=== PATIENT | female | born 1980 | race African-American/Black ===

== ENCOUNTER 2016-12-01 06:02 | Inpatient (IN) | payer OTHER ==
[~2016-12-01] VITALS: Ht 172.7 cm; Wt 79.8 kg
[2016-12-01] MEDS ORDERED: LACTATED RINGERS 1,000 ML IV SCH (06:30)
[2016-12-01 07:01] LABS: EOSINOPHILS % 1.7 % (0.0-5.0); HEMATOCRIT. 36.5 % (36.0-48.0); HEMOGLOBIN. 12.5 g/dL (12.0-16.0); LYMPHOCYTES % 35.5 % (20.0-50.0); MEAN CORPUSCULAR HEMOGLOBIN 29.5 pg (28.0-32.0); MEAN CORPUSCULAR VOLUME 86.2 fL (81.0-99.0); MONOCYTES % 10.6 % (2.0-8.0); NEUTROPHILS % 51.2 % (40.0-76.0); PLATELET 220 x1000/uL (130-400); RED BLOOD CELL COUNT 4.24 mill/uL (4.2-5.4); RED CELL DISTRIBUTION WIDTH 13.4 % (11.6-14.6)
[2016-12-01] MEDS ORDERED: VASOPRESSIN 20 UNIT/ML 1ML ONE ×2 (07:01→08:31)
[2016-12-01 07:06] LABS: CLARITY URINE CLEAR (CLEAR); COLOR URINE YELLOW (YELLOW); GLUCOSE URINE NEGATIVE (NEGATIVE); KETONES URINE NEGATIVE (NEGATIVE); LEUKOCYTE ESTERASE URINE NEGATIVE (NEGATIVE); NITRITE URINE NEGATIVE (NEGATIVE); OCCULT BLOOD URINE 2+ (NEGATIVE); PH URINE 5.5 (4.5-8.0); PROTEIN URINE NEGATIVE (NEGATIVE); SPECIFIC GRAVITY URINE 1.016 (1.005-1.030); UROBILINOGEN URINE 0.2 E.U./dL (0.2-1.0)
[2016-12-01 07:09] LABS: PARTIAL THROMBOPLASTIN TIME 25.9 sec (24.0-34.0); PROTHROMBIN TIME 10.7 sec
[2016-12-01] MEDS ORDERED: MIDAZOLAM HCL 2 MG/2 ML VIAL ONE (07:49)
[2016-12-01] MEDS ORDERED: ROCURONIUM BROMIDE 10MG/ML VIAL 5ML IV ONE (07:50)
[2016-12-01] MEDS ORDERED: LIDOCAINE HCL 1% 20ML VIAL (Pyxis) INJ ONE (07:50)
[2016-12-01] MEDS ORDERED: PROPOFOL 200MG/20ML VIAL IV ONE (07:50)
[2016-12-01] MEDS ORDERED: FENTANYL CITRATE/PF 50MCG/ML 2ML VIAL ONE ×2 (07:53→08:14)
[2016-12-01] MEDS ORDERED: CEFAZOLIN SODIUM 1000MG/VIAL ONE (08:02)
[2016-12-01] MEDS ORDERED: ONDANSETRON HCL 4MG/2ML VIAL ONE (08:04)
[2016-12-01] MEDS ORDERED: DEXAMETHASONE 4MG/ML 1ML VIAL ONE (08:04)
[2016-12-01] MEDS ORDERED: METOCLOPRAMIDE HCL 10MG/2ML VIAL ONE (08:04)
[2016-12-01] MEDS ORDERED: FERR-63 PO (08:06)
[2016-12-01] MEDS ORDERED: SODIUM CHLORIDE 0.9% 1,000 ML IV SCH (08:06)
[2016-12-01] MEDS ORDERED: PREN-88 PO (08:06)
[2016-12-01] MEDS ORDERED: OMEP20TA15 PO (08:08)
[2016-12-01] MEDS ORDERED: IBUP-1509 PO (08:08)
[2016-12-01] MEDS ORDERED: ONDANSETRON HCL 4MG/2ML VIAL IV PRN (08:15)
[2016-12-01] MEDS: HYDROMORPHONE HCL/PF 2MG/ML CPJ IV PRN ×4 (09:48→10:06)
[2016-12-01] MEDS ORDERED: HYDROMORPHONE PCA 10MG/50ML IV PRN (09:54)
[2016-12-01] MEDS ORDERED: NALOXONE INJ IV PRN (10:00)
[2016-12-01] MEDS ORDERED: HYDROCODONE/ACETAMINOPHEN 5/325MG TABLET PO PRN (10:00)
[2016-12-01] MEDS ORDERED: IBUPROFEN 600MG TABLET PO PRN (10:00)
[2016-12-01] MEDS ORDERED: DIPHENHYDRAMINE INJ IV PRN (10:00)
[2016-12-01 13:00] VITALS: BP 117/80
[2016-12-01 14:49] VITALS: BP 117/80
[2016-12-01] MEDS: DEXT 5%/LACTATED RINGERS 1,000 ML IV SCH (15:49)
[2016-12-01 16:00] VITALS: BP 113/79
[2016-12-01] MEDS: ONDANSETRON INJ IV PRN (18:08)
[2016-12-01 20:00] VITALS: BP 123/84
[2016-12-02] VITALS: BP 123/85
[2016-12-02] MEDS: DEXT 5%/LACTATED RINGERS 1,000 ML IV SCH ×3 (01:06→17:28)
[2016-12-02] MEDS: ONDANSETRON INJ IV PRN ×2 (02:01→09:06)
[2016-12-02 04:00] VITALS: BP 121/84
[2016-12-02 06:24] LABS: BASOPHILS % 0.4 % (0.0-2.0); EOSINOPHILS % 0.2 % (0.0-5.0); HEMATOCRIT. 34.4 % (36.0-48.0); HEMOGLOBIN. 11.6 g/dL (12.0-16.0); MEAN CORPUSCULAR HEMOGLOBIN 29.5 pg (28.0-32.0); MEAN CORPUSCULAR VOLUME 87.3 fL (81.0-99.0); MEAN PLATELET VOLUME 8.5 fl (7.4-10.4); MONOCYTES % 10.9 % (2.0-8.0); NEUTROPHILS % 68.5 % (40.0-76.0); PLATELET 210 x1000/uL (130-400); RED BLOOD CELL COUNT 3.94 mill/uL (4.2-5.4); RED CELL DISTRIBUTION WIDTH 13.6 % (11.6-14.6)
[2016-12-02 08:00] VITALS: BP 129/95
[2016-12-02 12:00] VITALS: BP 134/92
[2016-12-02 16:00] VITALS: BP 117/84
[2016-12-02] MEDS ORDERED: HYDROCODONE/ACETAMINOPHEN 10/325MG TABLET PO PRN (18:45)
[2016-12-02 20:00] VITALS: BP 137/94
[2016-12-03] VITALS: BP 111/72
[2016-12-03 04:00] VITALS: BP 120/72
[2016-12-03 08:00] VITALS: BP 117/82
[2016-12-03] MEDS ORDERED: DOCUSATE SODIUM 250MG CAPSULE PO SCH (09:00)
[2016-12-03 12:00] VITALS: BP 119/80
[2016-12-03 14:10] VITALS: BP 119/80
== END 2016-12-03 15:00 | disposition home or self-care (01) | DRG 743 ==
LOC: OR 06:02 → 6EST 06:03
PROVIDERS: ADMIT Obstetrics & Gynecology Obstetrics; ATTEND Obstetrics & Gynecology Obstetrics
PROC: 0UB90ZZ Excision of Uterus, Open Approach (ICD-10-PCS; principal; 2016-12-01 07:30)
DX: D25.9 Leiomyoma of uterus, unspecified (principal); N80.0 Endometriosis of uterus; N83.202 Unspecified ovarian cyst, left side; Z82.3 Family history of stroke; Z82.49 Family history of ischemic heart disease and other diseases of the circulatory system; Z83.3 Family history of diabetes mellitus
CPT/HCPCS: 36415; 81001; 85025; 85610; 85730; 88305; C1893; J0690; J1100; J1170; J2250; J2405; J2704; J2765; J3010; J3490; J7030; J7120; J7121

== ENCOUNTER 2018-12-13 14:28 | Emergency (ER) | payer OTHER ==
[~2018-12-13] VITALS: Ht 177.8 cm; Wt 85.0 kg
[~2018-12-13 14:28] MED LIST: FERR-63 PO; IBUP-2028 PO; OMEP20TA15 PO; PREN-88 PO
[2018-12-13] MEDS ORDERED: FAMOTIDINE 20MG/2ML VIAL IV STA (19:48)
[2018-12-13] MEDS ORDERED: MAGNESIUM/ALUMINUM HYDROXIDE/SIMETHICONE 30ML UDC PO STA (19:48)
[2018-12-13] MEDS ORDERED: SODIUM CHLORIDE 0.9% 1,000 ML IV ONE (19:48)
[2018-12-13 20:04] LABS: BASOPHILS % 1.3 % (0.0-2.0); HEMATOCRIT. 37.3 % (36.0-48.0); HEMOGLOBIN. 12.8 g/dL (12.0-16.0); LYMPHOCYTES % 36.3 % (20.0-50.0); MEAN CORPUSCULAR VOLUME 90.4 fL (81.0-99.0); MEAN PLATELET VOLUME 8.1 fl (7.4-10.4); MONOCYTES % 8.1 % (2.0-8.0); NEUTROPHILS % 53.3 % (40.0-76.0); PLATELET 243 x1000/uL (130-400); RED BLOOD CELL COUNT 4.12 mill/uL (4.2-5.4); RED CELL DISTRIBUTION WIDTH 12.6 % (11.6-14.6)
[2018-12-13 20:09] LABS: CHLORIDE 107 mEq/L (98-107)
[2018-12-13 20:27] LABS: AMYLASE 118 IU/L (25-115)
[2018-12-13 20:46] LABS: CLARITY URINE CLOUDY (CLEAR); COLOR URINE YELLOW (YELLOW); KETONES URINE NEGATIVE (NEGATIVE); LEUKOCYTE ESTERASE URINE 2+ (NEGATIVE); NITRITE URINE POSITIVE (NEGATIVE); OCCULT BLOOD URINE NEGATIVE (NEGATIVE); PROTEIN URINE NEGATIVE (NEGATIVE); SPECIFIC GRAVITY URINE 1.013 (1.005-1.030); UROBILINOGEN URINE 0.2 E.U./dL (0.2-1.0)
[2018-12-13] MEDS ORDERED: MORPHINE SULFATE 4 MG/ML CPJ (NOT FOR IM USE) IV ONE (23:15)
[2018-12-13] MEDS ORDERED: CEFTRIAXONE 1 G PREMIX 50 ML IV ONE (23:15)
[2018-12-14 02:39] VITALS: BP 122/82
[2018-12-14] MEDS ORDERED: IOHEXOL-350 100 ML BOTTLE ONE (02:52)
== END 2018-12-14 02:41 | disposition home or self-care (01) ==
LOC: ER 14:28
DX: R10.9 Unspecified abdominal pain (principal); N39.0 Urinary tract infection, site not specified; K21.9 Gastro-esophageal reflux disease without esophagitis
CPT/HCPCS: 36415; 71045; 71275; 76700; 80053; 81003; 81025; 82150; 83615; 83690; 83880; 84484; 85025; 85379; 85651; 87086; 87186; 93005; 96365; 96375; 99284; J0696; J2270; J3490; J7030; Q9967; Z7610